=== PATIENT | female | born 1945 | race Hispanic/Latino ===

== ENCOUNTER 2018-04-27 12:12 | Emergency (ER) | payer MEDICARE ==
[2018-04-27 12:21] VITALS: TEMP 98.4
--- NOTE | 2018-04-27 12:44 | ED PDOC ---
Arrival/HPI - General Historian: Patient - History of Present Illness Narrative History of Present Illness (Text): 04/27/18 12:33 72yo female with no pmhx who present with complaint of focal pain over her right lateral foot and melleolus area x few days. States pain is with ambulation. Did not take any medication for the pain. Denies trauma, calf pain, any other complaint. <Inna Rodriguez A - Last Filed: 04/27/18 13:42> <Kurt Frost - Last Filed: 04/27/18 16:01> - General Chief Complaint: Lower Extremity Problem/Injury Time Seen by Provider: 04/27/18 12:22 Past Medical History - Provider Review Nursing Documentation Reviewed: Yes - Cardiac Hx Cardiac Disorders: No - Pulmonary Hx Respiratory Disorders: No - Neurological Hx Neurological Disorder: No - HEENT Hx HEENT Disorder: No - Renal Hx Renal Disorder: No - Endocrine/Metabolic Hx Endocrine Disorders: Yes Hx Hypothyroidism: Yes - Hematological/Oncological Hx Blood Disorders: No - Integumentary Hx Dermatological Disorder: No - Musculoskeletal/Rheumatological Hx Musculoskeletal Disorders: No - Gastrointestinal Hx Gastrointestinal Disorders: No - Genitourinary/Gynecological Hx Genitourinary Disorders: No - Psychiatric Hx Psychophysiologic Disorder: No Hx Substance Use: No <Inna Rodriguez A - Last Filed: 04/27/18 13:42> Family/Social History - Physician Review Nursing Documentation Reviewed: Yes Family/Social History: Unknown Family HX Smoking Status: Never Smoked Hx Alcohol Use: No Hx Substance Use: No <Inna Rodriguez A - Last Filed: 04/27/18 13:42> Allergies/Home Meds <Inna Rodriguez A - Last Filed: 04/27/18 13:42> <Kurt Frost - Last Filed: 04/27/18 16:01> Allergies/Adverse Reactions: Allergies No Known Allergies Allergy (Verified 04/27/18 12:17) Home Medications: Home Meds Medication Instructions Recorded Confirmed Levothyroxine [Synthroid] 50 mcg PO DAILY 04/27/18 04/27/18 Review of Systems - Physician Review All systems were reviewed & negative as marked: Yes - Review of Systems Constitutional: Normal Eyes: Normal ENT: Normal Respiratory: Normal Cardiovascular: Normal Gastrointestinal: Normal Genitourinary Female: Normal Musculoskeletal: Arthralgias (Right foot) Skin: Normal Neurological: Normal Endocrine: Normal Hemo/Lymphatic: Normal Psychiatric: Normal <Diru,Happiness A - Last Filed: 04/27/18 13:42> Physical Exam Vital Signs Reviewed: Yes Vital Signs Temp Pulse Resp BP Pulse Ox 04/27/18 12:18 98.4 F 70 16 170/72 H 97 Temperature: Afebrile Blood Pressure: Normal Pulse: Regular Respiratory Rate: Normal Appearance: Positive for: Well-Appearing, Non-Toxic, Comfortable Pain Distress: None Mental Status: Positive for: Alert and Oriented X 3 - Systems Exam Head: Present: Atraumatic, Normocephalic Pupils: Present: PERRL Extroacular Muscles: Present: EOMI Conjunctiva: Present: Normal Mouth: Present: Moist Mucous Membranes Neck: Present: Normal Range of Motion Respiratory/Chest: Present: Clear to Auscultation, Good Air Exchange. No: Respiratory Distress, Accessory Muscle Use Cardiovascular: Present: Regular Rate and Rhythm, Normal S1, S2. No: Murmurs Abdomen: No: Tenderness, Distention, Peritoneal Signs Back: Present: Normal Inspection Upper Extremity: Present: Normal Inspection. No: Cyanosis, Edema Lower Extremity: Present: NORMAL PULSES, Normal ROM, Tenderness (Over lateral right foot). No: Edema, CALF TENDERNESS, Swelling, Erythema, Deformity, Temperature Abnormalties Neurological: Present: GCS=15, CN II-XII Intact, Speech Normal Skin: Present: Warm, Dry, Normal Color. No: Rashes Psychiatric: Present: Alert, Oriented x 3, Normal Insight, Normal Concentration <Diru,Happiness A - Last Filed: 04/27/18 13:42> Vital Signs Temp Pulse Resp BP Pulse Ox 04/27/18 13:54 79 18 156/74 H 99 04/27/18 12:18 98.4 F 70 16 170/72 H 97 <Tolerico,Kurt - Last Filed: 04/27/18 16:01> Medical Decision Making ED Course and Treatment: 04/27/18 13:42 Right foot xray No acute finding Result was DW the pt she was referred to a senior mortgage underwriter - RAD Interpretation Radiology Orders: 04/27/18 12:28 FOOT RIGHT 3 VIEWS ROUTINE [RAD] Stat - Medication Orders Current Medication Orders: Discontinued Medications Ibuprofen (Motrin Tab) 600 mg PO STAT STA Stop: 04/27/18 12:29 <Inna Rodriguez A - Last Filed: 04/27/18 13:42> - RAD Interpretation Radiology Orders: 04/27/18 12:28 FOOT RIGHT 3 VIEWS ROUTINE [RAD] Stat - Medication Orders Current Medication Orders: Discontinued Medications Ibuprofen (Motrin Tab) 600 mg PO STAT STA Stop: 04/27/18 12:29 Last Admin: 04/27/18 12:36 Dose: 600 mg MAR Pain/Vitals Document 04/27/18 12:36 HI (Rec: 04/27/18 12:37 [id number] Pain Reassessment Is This A Pain ReAssessment? No Sleep Is patient sleeping during reassessment? No Presence of Pain Presence of Pain Yes Location Left, Right or Bilateral Right Pain Location Body Site Ankle Re-Assess: MAR Pain/Vitals Document 04/27/18 13:36 HI (Rec: 04/27/18 14:09 [id number] Pain Reassessment Is This A Pain ReAssessment? Yes Sleep Is patient sleeping during reassessment? No Presence of Pain Presence of Pain No Prednisone (Prednisone Tab) 10 mg PO ONCE STA Stop: 04/27/18 13:44 Last Admin: 04/27/18 14:07 Dose: 10 mg <Kurt Frost - Last Filed: 04/27/18 16:01> - PA / RRT / Resident Statement / has reviewed & agrees with the documentation as recorded. <Kurt Frost - Last Filed: 04/27/18 16:01> Disposition/Present on Arrival - Present on Arrival Any Indicators Present on Arrival: No History of DVT/PE: No History of Uncontrolled Diabetes: No Urinary Catheter: No History of Decub. Ulcer: No History Surgical Site Infection Following: None - Disposition Have Diagnosis and Disposition been Completed?: Yes Disposition Time: 13:45 Patient Plan: Discharge <Inna Rodriguez A - Last Filed: 04/27/18 13:42> <Kurt Frost - Last Filed: 04/27/18 16:01> - Disposition Diagnosis: Foot pain Disposition: HOME/ ROUTINE Condition: STABLE Discharge Instructions (ExitCare): Foot Sprain (DC) Additional Instructions: Follow up with a Small Business Representative Return to ED for any new symptoms Prescriptions: predniSONE [Prednisone] 10 mg PO DAILY #3 tab RX: traMADol [Ultram] 50 mg PO TID #12 tab Referrals: Igor Guerra MD [[facility]] - Follow up with primary Forms: [employer] (Khmer)
--- NOTE | 2018-04-27 13:37 | RAD ---
Date of service: 04/27/2018 PROCEDURE: Right Foot Radiographs. HISTORY: foot pain COMPARISON: None. FINDINGS: BONES: No acute fracture. JOINTS: Normal. SOFT TISSUES: Normal. OTHER FINDINGS: None. IMPRESSION: No demonstrated fracture or dislocation.
[2018-04-27 13:55] VITALS: BP 156/74; PULSE 79; RESP 18; O2SAT 99
== END 2018-04-27 14:09 | disposition home or self-care (01) ==
LOC: ED 12:12
DX: M79.671 Pain in right foot (principal)

== ENCOUNTER 2018-12-19 09:20 | Outpatient (CLI) | payer MEDICARE | END 2018-12-19 09:21 | disposition home or self-care (01) | LOC: RAD 09:20 ==